=== PATIENT | female | born 1950 | race Caucasian/White ===

== ENCOUNTER 2020-08-09 17:49 | Emergency (ER) | payer BC, SELFPAY ==
[~2020-08-09] VITALS: Ht 152.4 cm; Wt 60.8 kg
[2020-08-09 17:52] VITALS: Ht 152.4 cm; Wt 60.8 kg
[2020-08-09 18:49] LABS: BASOPHIL % 0.7 % (0.2-1.3); PLATELET COUNT 335 x10^3mcL (179-408); RED CELL DISTRIBUTION WIDTH 12.9 % (12.3-17.7)
[2020-08-09 19:03] LABS: CARBON DIOXIDE 33.6 mmol/L (21-32); CHLORIDE SERUM 104 mmol/L (98-107); CREATININE SERUM 0.7 mg/dL (0.6-1.0); GFR1 > 60 mL/min; GLUCOSE SERUM 96 mg/dL (74-106); POTASSIUM SERUM 3.7 mmol/L (3.5-5.1); SODIUM SERUM 143 mmol/L (136-145)
[2020-08-09 19:08] LABS: ALBUMIN 4.3 g/dL (3.4-5.0); ALKALINE PHOSPHATASE 93 U/L (46-116); ALT/SGPT 79 U/L (14-59); AST/SGOT 59 U/L (15-37); BILIRUBIN TOTAL 0.5 mg/dL (0.20-1.00)
[2020-08-09 19:09] LABS: TOTAL PROTEIN, SERUM 8.5 g/dL (6.4-8.2)
[2020-08-09 20:28] VITALS: BP 172/97
== END 2020-08-09 20:30 | disposition home or self-care (01) ==
LOC: ED 17:49
PROVIDERS: Student in an Organized Health Care Education/Training Program
DX: F41.9 Anxiety disorder, unspecified (principal); G43.909 Migraine, unspecified, not intractable, without status migrainosus; Z20.828 Contact with and (suspected) exposure to other viral communicable diseases; Z88.1 Allergy status to other antibiotic agents
CPT/HCPCS: J8597; U0003